=== PATIENT | male | born 1955 | race Caucasian/White ===

== ENCOUNTER 2017-10-15 05:23 | Inpatient (IN) | payer MEDICARE, MEDICAID ==
[2017-10-05 12:54] VITALS: BP 146/82
[~2017-10-15] VITALS: Ht 180.3 cm; Wt 105.0 kg
[~2017-10-15 05:23] MED LIST: AMLO5TAB2 PO; ASPI-496 PO; ATEN100T PO; ATOR80TA PO; CILO50TA PO; CLOP75TA PO; GABA300C10 PO; HYDR-3307 PO; HYDR12.58 PO; ISOS120T2 PO; LISI40TA PO; METF500T4 PO; NITR0.4T28 SL; TERA2CAP3 PO; VARE1TAB21 PO
[2017-10-15] MEDS ORDERED: VANCOMYCIN PER PHARMACY MC ONE (05:54)
[2017-10-15] MEDS ORDERED: LACTATED RINGERS 1,000 ML IV SCH (05:57)
[2017-10-15] MEDS ORDERED: GABAPENTIN 300 MG CAPSULE PO ONE (06:00)
[2017-10-15] MEDS ORDERED: VANCOMYCIN 1,800 MG in SODIUM CHLORIDE 0.9% 250 ML IV ONE (06:00)
[2017-10-15] MEDS ORDERED: LIDOCAINE-MPF 1%, 2ML INFIL ONE (06:00)
[2017-10-15] MEDS ORDERED: ACETAMINOPHEN 500 MG TABLET PO ONE (06:00)
[2017-10-15] MEDS ORDERED: KETOROLAC 60 MG/2 ML ONE (06:16)
[2017-10-15] MEDS ORDERED: ROPIvacaine/PF 0.2%, 20 ML ONE (06:17)
[2017-10-15] MEDS ORDERED: TRANEXAMIC ACID 100 MG/ML, 10ML ONE ×4 (06:17)
[2017-10-15] MEDS ORDERED: VANCOMYCIN 1,000 MG ONE (06:18)
[2017-10-15] MEDS ORDERED: EPINEPHRINE 1 MG/ML, 1ML ONE (06:18)
[2017-10-15] MEDS ORDERED: SODIUM CHLORIDE 0.9% 100 ML ONE (06:18)
[2017-10-15] MEDS ORDERED: ROPivacaine/PF 0.2%, 10 ML ONE (06:18)
[2017-10-15] MEDS ORDERED: MIDAZOLAM 1 MG/ML, 2ML ONE (06:30)
[2017-10-15] MEDS ORDERED: PNEUMOCOCCAL 23 VACCINE IM-VACC ONE (06:30)
[2017-10-15] MEDS ORDERED: FENTANYL PF 250 MCG/5ML ONE (06:30)
[2017-10-15] MEDS ORDERED: GLYCOPYRROLATE 0.2MG/1ML, 5ML ONE (07:20)
[2017-10-15] MEDS ORDERED: CEFAZOLIN 1,000 MG ONE (07:20)
[2017-10-15] MEDS ORDERED: ROCURONIUM 10MG/ML,5ML ONE (07:20)
[2017-10-15] MEDS ORDERED: PROPOFOL 10 MG/ML, 20ML ONE (07:20)
[2017-10-15] MEDS ORDERED: SUCCINYLCHOLINE 20 MG/ML, 10ML ONE (07:20)
[2017-10-15] MEDS ORDERED: ONDANSETRON 2MG/ML, 2ML ONE (07:20)
[2017-10-15] MEDS ORDERED: NEOSTIGMINE 1 MG/ML, 10ML ONE (07:20)
[2017-10-15] MEDS ORDERED: OXYcodone 5 MG/5 ML ORAL.SOL UDC PO PRN (08:00)
[2017-10-15] MEDS ORDERED: METOCLOPRAMIDE 5 MG/ML, 2ML IV PRN (08:00)
[2017-10-15] MEDS ORDERED: ONDANSETRON 2MG/ML, 2ML IVPush PRN (08:00)
[2017-10-15] MEDS ORDERED: LABETALOL 5MG/ML, 20ML IV PRN (08:00)
[2017-10-15] MEDS ORDERED: ACETAMINOPHEN 325 MG TABLET PO PRN (08:00)
[2017-10-15] MEDS ORDERED: hydrALAzine 20 MG/ML, 1ML IV PRN (08:00)
[2017-10-15] MEDS ORDERED: MEPERIDINE/PF 50 MG/ML ONE (09:03)
[2017-10-15] MEDS ORDERED: HYDROmorphone 1 MG/ML, 1ML ONE (09:04)
[2017-10-15] MEDS ORDERED: FENTANYL PF 100 MCG/2ML ONE (09:04)
[2017-10-15] MEDS: MEPERIDINE/PF 25MG/0.5ML IVPush PRN ×2 (09:10→09:25)
[2017-10-15] MEDS: FENTANYL PF 100 MCG/2ML IV PRN ×2 (09:15→09:30)
[2017-10-15] MEDS: HYDROmorphone 1 MG/ML, 1ML IV PRN ×3 (09:20→09:50)
[2017-10-15] MEDS ORDERED: OXYcodone 5 MG/5 ML ORAL.SOL UDC ONE (09:22)
[2017-10-15] MEDS ORDERED: SENNA/DOCUSATE TABLET PO PRN (11:00)
[2017-10-15] MEDS ORDERED: ALUMINUM/MAG/SIMETHICONE 30 ML UDC PO PRN (11:00)
[2017-10-15] MEDS ORDERED: TRANEXAMIC ACID 1,000 MG in SODIUM CHLORIDE 0.9% 100 ML IVPB ONE (11:00)
[2017-10-15] MEDS ORDERED: ONDANSETRON 4 MG TABLET PO PRN (11:00)
[2017-10-15] MEDS ORDERED: MAGNESIUM HYDROXIDE 8%, 30ML UDC PO PRN (11:00)
[2017-10-15] MEDS ORDERED: ACETAMINOPHEN 650 MG/20.3 ML UDC PO PRN (11:00)
[2017-10-15] MEDS ORDERED: DIPHENHYDRAMINE 25 MG CAPSULE PO PRN (11:00)
[2017-10-15] MEDS ORDERED: DIAZEPAM 5 MG TABLET PO PRN (11:00)
[2017-10-15] MEDS ORDERED: ONDANSETRON 2MG/ML, 2ML IV PRN (11:00)
[2017-10-15] MEDS ORDERED: MORPHINE SULFATE 4 MG/ML, 1ML IV PRN (11:00)
[2017-10-15] MEDS ORDERED: NITROGLYCERIN 0.4 MG BOTTLE (25 TABS) SL PRN (11:30)
[2017-10-15] MEDS: AMLODIPINE 5 MG TABLET PO SCH (11:40)
[2017-10-15] MEDS: NS + 20MEQ KCL 1,000 ML IV SCH ×2 (13:19→22:00)
[2017-10-15] MEDS: OXYcodone IR 5MG TABLET PO PRN (13:51)
[2017-10-15 14:35] VITALS: BP 110/63
[2017-10-15] MEDS: CEFAZOLIN PMX 1GM/50ML 50 ML IVPB SCH (15:25)
[2017-10-15] MEDS: GABAPENTIN 300 MG CAPSULE PO SCH ×2 (15:25→21:56)
[2017-10-15] MEDS ORDERED: TAMSULOSIN 0.4 MG CAP.ER.24H ONE (16:37)
[2017-10-15] MEDS: metFORMIN 500 MG TABLET PO SCH (17:26)
[2017-10-15] MEDS: CLOPIDOGREL 75 MG TABLET PO SCH (17:26)
[2017-10-15] MEDS ORDERED: ASPIRIN 81 MG TABLET EC PO SCH (18:00)
[2017-10-15] MEDS ORDERED: FAMOTIDINE 20 MG TABLET PO PRN (18:30)
[2017-10-15 19:05] VITALS: BP 123/76
[2017-10-15] MEDS ORDERED: ATORVASTATIN 80 MG TABLET PO SCH (21:00)
[2017-10-15] MEDS ORDERED: TERAZOSIN 2MG CAPSULE PO SCH (21:00)
[2017-10-15] MEDS ORDERED: ATENOLOL 100 MG TABLET PO SCH (21:00)
[2017-10-15] MEDS: CILOSTAZOL 100 MG TABLET PO SCH (21:58)
[2017-10-15] MEDS: DOCUSATE 100 MG CAPSULE PO SCH (21:59)
[2017-10-16] MEDS: OXYcodone IR 5MG TABLET PO PRN (01:00)
[2017-10-16] MEDS: CEFAZOLIN PMX 1GM/50ML 50 ML IVPB SCH (01:02)
[2017-10-16 01:58] VITALS: BP 108/68
[2017-10-16] MEDS ORDERED: ASPIRIN 81 MG TABLET EC PO SCH (06:00)
[2017-10-16] MEDS ORDERED: DEXAMETHASONE 4 MG/ML, 1ML IVPush SCH (06:00)
[2017-10-16] MEDS: NS + 20MEQ KCL 1,000 ML IV SCH (07:27)
[2017-10-16] MEDS: DOCUSATE 100 MG CAPSULE PO SCH (07:49)
[2017-10-16] MEDS: GABAPENTIN 300 MG CAPSULE PO SCH (07:49)
[2017-10-16] MEDS: AMLODIPINE 5 MG TABLET PO SCH (07:53)
[2017-10-16] MEDS: CLOPIDOGREL 75 MG TABLET PO SCH (07:53)
[2017-10-16] MEDS: metFORMIN 500 MG TABLET PO SCH (07:59)
[2017-10-16 08:01] VITALS: BP 100/61
[2017-10-16] MEDS ORDERED: HYDROCHLOROTHIAZIDE 12.5 MG CAPSULE PO SCH (09:00)
[2017-10-16] MEDS ORDERED: LISINOPRIL 20 MG TABLET PO SCH (09:00)
[2017-10-16] MEDS ORDERED: ISOSORBIDE MONONITRATE ER 60 MG TABLET PO SCH (09:00)
[2017-10-16] MEDS ORDERED: CLOPIDOGREL 75 MG TABLET PO SCH (09:00)
[2017-10-16] MEDS ORDERED: TAMSULOSIN 0.4 MG CAP.ER.24H PO SCH (09:00)
[2017-10-16] MEDS: CILOSTAZOL 100 MG TABLET PO SCH (09:30)
[2017-10-16] MEDS ORDERED: TRAM50TA2 PO (10:01)
[2017-10-16] MEDS ORDERED: DIAZ5TAB PO (10:01)
[2017-10-16] MEDS ORDERED: OXYC5CAP2 PO (10:01)
[2017-10-16] MEDS ORDERED: DOCU-131 PO (10:01)
[2017-10-16] MEDS ORDERED: ONDA4TAB10 PO (10:01)
[2017-10-16] MEDS ORDERED: CELE200C PO (10:01)
[2017-10-16 10:23] VITALS: BP 101/63
[2017-10-16] MEDS ORDERED: KETOROLAC 30 MG/1 ML IV SCH (14:00)
== END 2017-10-16 11:00 | disposition home or self-care (01) | DRG 470 ==
LOC: ORIP 05:23 → 4NOR 10:45 → DCLOUNGE 10-16 10:43
PROVIDERS: ADMIT Orthopaedic Surgery; ATTEND Orthopaedic Surgery
PROC: 0SR906Z Replacement of Right Hip Joint with Oxidized Zirconium on Polyethylene Synthetic Substitute, Open Approach (ICD-10-PCS; principal; 2017-10-15 07:00)
DX: M16.11 Unilateral primary osteoarthritis, right hip (principal); E11.8 Type 2 diabetes mellitus with unspecified complications; I25.810 Atherosclerosis of coronary artery bypass graft(s) without angina pectoris; I10 Essential (primary) hypertension; F17.200 Nicotine dependence, unspecified, uncomplicated
CPT/HCPCS: 36415; 72170; 82962; 85014; 85018; 86850; 86900; C1713; J0171; J0690; J1100; J1170; J1885; J2175; J2250; J2405; J2704; J2710; J2795; J3010; J3370; J3480; J3490; C1776; J0330; J7050; J7120

== ENCOUNTER 2017-11-03 10:44 | Emergency (ER) | payer MEDICARE, MEDICAID ==
[~2017-11-03] VITALS: Ht 180.3 cm; Wt 103.8 kg
[~2017-11-03 10:44] MED LIST changes: +CELE200C PO; +DIAZ5TAB PO; +DOCU-131 PO; +ONDA4TAB10 PO; +OXYC5CAP2 PO; +TRAM50TA2 PO
[2017-11-03] MEDS ORDERED: ONDANSETRON ODT 4 MG ONE (12:30)
[2017-11-03] MEDS ORDERED: HYDROmorphone 1 MG/ML, 1ML IM ONE (12:30)
[2017-11-03] MEDS ORDERED: ONDANSETRON ODT 4 MG PO ONE (12:30)
[2017-11-03] MEDS ORDERED: KETOROLAC 30 MG/1 ML IM ONE (12:30)
[2017-11-03] MEDS ORDERED: HYDROmorphone 1 MG/ML, 1ML ONE (12:32)
[2017-11-03 13:28] VITALS: BP 114/70
== END 2017-11-03 13:31 | disposition home or self-care (01) ==
LOC: ED 12:00
DX: M16.12 Unilateral primary osteoarthritis, left hip (principal); G89.29 Other chronic pain; E11.9 Type 2 diabetes mellitus without complications; M19.90 Unspecified osteoarthritis, unspecified site; Z87.891 Personal history of nicotine dependence
CPT/HCPCS: 73502; 96372; 99284; J1170; J1885; Q0162

== ENCOUNTER 2017-11-26 05:28 | Inpatient (IN) | payer MEDICARE, MEDICAID ==
[2017-11-19 11:24] VITALS: BP 148/85
[~2017-11-26] VITALS: Ht 179.1 cm; Wt 105.1 kg
[2017-11-26] MEDS ORDERED: VANCOMYCIN PER PHARMACY MC ONE (06:00)
[2017-11-26] MEDS ORDERED: ACETAMINOPHEN 500 MG TABLET PO ONE (06:00)
[2017-11-26] MEDS ORDERED: GABAPENTIN 300 MG CAPSULE PO ONE (06:00)
[2017-11-26] MEDS ORDERED: VANCOMYCIN 1,900 MG in SODIUM CHLORIDE 0.9% 250 ML IV ONE (06:00)
[2017-11-26] MEDS ORDERED: LACTATED RINGERS 1,000 ML IV SCH (06:04)
[2017-11-26] MEDS ORDERED: LIDOCAINE-MPF 1%, 2ML INFIL ONE (06:30)
[2017-11-26] MEDS ORDERED: FENTANYL PF 250 MCG/5ML ONE (06:39)
[2017-11-26] MEDS ORDERED: MIDAZOLAM 1 MG/ML, 2ML ONE (06:39)
[2017-11-26] MEDS ORDERED: PROPOFOL 10 MG/ML, 20ML ONE (06:40)
[2017-11-26] MEDS ORDERED: ROCURONIUM 10MG/ML,5ML ONE (06:41)
[2017-11-26] MEDS ORDERED: NEOSTIGMINE 1 MG/ML, 10ML ONE (06:42)
[2017-11-26] MEDS ORDERED: GLYCOPYRROLATE 0.4 MG/2 ML, 2ML ONE (06:42)
[2017-11-26] MEDS ORDERED: PHENYLEPHRINE 10 MG/ML ONE (06:43)
[2017-11-26] MEDS ORDERED: WATER-INJECTION,STERILE 10 ML IV ONE (06:45)
[2017-11-26] MEDS ORDERED: CEFAZOLIN 1,000 MG ONE ×2 (06:45)
[2017-11-26] MEDS ORDERED: PROMETHAZINE 12.5 MG SUPP PR PRN (07:00)
[2017-11-26] MEDS ORDERED: PROMETHAZINE 25 MG/ML, 1ML IV PRN (07:00)
[2017-11-26] MEDS ORDERED: morphine SULFATE 10 MG/ML, 1ML IV PRN (07:00)
[2017-11-26] MEDS ORDERED: ONDANSETRON 2MG/ML, 2ML IVPush PRN (07:00)
[2017-11-26] MEDS ORDERED: MEPERIDINE/PF 25MG/0.5ML IVPush PRN (07:00)
[2017-11-26] MEDS ORDERED: HYDROmorphone 1 MG/ML, 1ML IV PRN ×2 (07:00→07:30)
[2017-11-26] MEDS ORDERED: FENTANYL PF 100 MCG/2ML IV PRN (07:00)
[2017-11-26] MEDS ORDERED: LABETALOL 5MG/ML, 20ML IV PRN (07:00)
[2017-11-26] MEDS ORDERED: OXYcodone 5 MG/5 ML ORAL.SOL UDC PO PRN (07:00)
[2017-11-26] MEDS ORDERED: hydrALAzine 20 MG/ML, 1ML IV PRN (07:00)
[2017-11-26] MEDS ORDERED: ALUMINUM/MAG/SIMETHICONE 30 ML UDC PO PRN (07:30)
[2017-11-26] MEDS ORDERED: CEFAZOLIN PMX 1GM/50ML 50 ML IVPB SCH (07:30)
[2017-11-26] MEDS ORDERED: MAGNESIUM HYDROXIDE 8%, 30ML UDC PO PRN (07:30)
[2017-11-26] MEDS ORDERED: DIPHENHYDRAMINE 50 MG CAPSULE PO PRN (07:30)
[2017-11-26] MEDS ORDERED: ACETAMINOPHEN 650 MG/20.3 ML UDC PO PRN (07:30)
[2017-11-26] MEDS ORDERED: DIAZEPAM 5 MG TABLET PO PRN (07:30)
[2017-11-26] MEDS ORDERED: ONDANSETRON 2MG/ML, 2ML IV PRN (07:30)
[2017-11-26] MEDS ORDERED: OXYcodone IR 5MG TABLET PO PRN (07:30)
[2017-11-26] MEDS ORDERED: SENNA/DOCUSATE TABLET PO PRN (07:30)
[2017-11-26] MEDS ORDERED: ONDANSETRON 4 MG TABLET PO PRN (07:30)
[2017-11-26] MEDS ORDERED: SUGAMMADEX 200 MG/2 ML IVPush ONE (08:00)
[2017-11-26] MEDS ORDERED: ALBUTEROL SULFATE 2.5 MG/3 ML ONE (08:17)
[2017-11-26] MEDS ORDERED: ALBUTEROL SULFATE 2.5 MG/3 ML NPPB PRN (08:30)
[2017-11-26] MEDS: TAMSULOSIN 0.4 MG CAP.ER.24H PO SCH (09:00)
[2017-11-26] MEDS ORDERED: TRANEXAMIC ACID 1,000 MG in SODIUM CHLORIDE 0.9% 100 ML IVPB ONE (09:00)
[2017-11-26] MEDS: DOCUSATE 100 MG CAPSULE PO SCH ×2 (09:00→21:00)
[2017-11-26 10:27] LABS: CLOSTRIDIUM DIFFICILE ANTIGEN NEGATIVE; CLOSTRIDIUM DIFFICILE TOXIN NEGATIVE (Negative)
[2017-11-26] MEDS ORDERED: ACETAMINOPHEN 325 MG TABLET PO PRN (11:30)
[2017-11-26] MEDS ORDERED: ENALAPRILAT 1.25 MG/ML, 2ML IVPush PRN (11:30)
[2017-11-26] MEDS ORDERED: DOCUSATE 100 MG CAPSULE PO PRN (11:30)
[2017-11-26] MEDS ORDERED: POLYETHYLENE GLYCOL 17 GM PACKET PO PRN (11:30)
[2017-11-26] MEDS ORDERED: BISACODYL 10 MG SUPP PR PRN (11:30)
[2017-11-26] MEDS ORDERED: LABETALOL 5MG/ML, 20ML IVPush PRN (11:30)
[2017-11-26 12:35] LABS: HEMOGLOBIN A1C 6.5 % (4.2-6.3)
[2017-11-26] MEDS: INSULIN LISPRO 100 UNITS/ML, PEN SQ-INSULIN SCH ×2 (13:30→21:36)
[2017-11-26] MEDS: NS + 20MEQ KCL 1,000 ML IV SCH ×2 (13:35→22:15)
[2017-11-26 13:37] VITALS: BP 103/64
[2017-11-26 18:48] LABS: BASOPHILS % (AUTO) 0 % (0-1); EOSINOPHILS % (AUTO) 0 % (1-7); LYMPHOCYTES # (AUTO) 0.65 x10^3/uL (1-3.4); LYMPHOCYTES % (AUTO) 16 % (22-44); MD NO; MEAN CORPUSCULAR HGB CONC 32.5 g/dL (33.2-36.2); MEAN CORPUSCULAR VOLUME 86.3 fL (81-97); MEAN PLATELET VOLUME 8.1 fL (7.4-10.4); MONOCYTES # (AUTO) 0.46 x10^3/uL (0.2-0.8); MONOCYTES % (AUTO) 12 % (2-9); NEUTROPHILS % (AUTO) 72 % (42-75); PLATELET COUNT 200 x10^3/uL (130-400); RED BLOOD COUNT 4.92 x10^6/uL (4.38-5.82); RED CELL DISTRIBUTION WIDTH 15.9 % (9.4-14.8)
[2017-11-26 19:00] LABS: ALANINE AMINOTRANSFERASE 19 U/L (12-78); ALBUMIN 3.2 g/dL (3.4-5.0); ANION GAP 10 mmol/L (5-15); CALCIUM 8.8 mg/dL (8.5-10.1); CHLORIDE 106 mmol/L (98-107); CREATININE 1.15 mg/dL (0.7-1.3)
[2017-11-26 19:02] LABS: ALKALINE PHOSPHATASE 63 U/L (45-117); BILIRUBIN,TOTAL 0.9 mg/dL (0.2-1.0); TOTAL PROTEIN 6.2 g/dL (6.4-8.2)
[2017-11-26] MEDS: metFORMIN 500 MG TABLET PO SCH (19:58)
[2017-11-26] MEDS ORDERED: NITROGLYCERIN 0.4 MG BOTTLE (25 TABS) SL PRN (20:00)
[2017-11-26 20:30] VITALS: BP 96/59
[2017-11-26] MEDS ORDERED: ALMOTRIPTAN 12.5 MG HOMEMEDPO PRN (20:30)
[2017-11-26] MEDS: TERAZOSIN 2MG CAPSULE PO SCH (21:00)
[2017-11-26] MEDS: ATENOLOL 100 MG TABLET PO SCH (21:00)
[2017-11-26] MEDS: ATORVASTATIN 80 MG TABLET PO SCH (21:35)
[2017-11-26] MEDS: CILOSTAZOL 100 MG TABLET PO SCH (21:35)
[2017-11-26] MEDS: CLOPIDOGREL 75 MG TABLET PO SCH (21:35)
[2017-11-26] MEDS: ASPIRIN 81 MG TABLET EC PO SCH (21:35)
[2017-11-27 02:25] VITALS: BP 113/68
[2017-11-27 05:25] LABS: CHLORIDE 107 mmol/L (98-107)
[2017-11-27 05:27] LABS: MEAN CORPUSCULAR HEMOGLOBIN 28.1 pg (27.5-34.5); MEAN CORPUSCULAR VOLUME 85.2 fL (81-97); PLATELET COUNT 209 x10^3/uL (130-400); RED BLOOD COUNT 4.64 x10^6/uL (4.38-5.82); RED CELL DISTRIBUTION WIDTH 15.8 % (9.4-14.8)
[2017-11-27 05:34] LABS: ALANINE AMINOTRANSFERASE 16 U/L (12-78); ALKALINE PHOSPHATASE 60 U/L (45-117); ANION GAP 9 mmol/L (5-15); BILIRUBIN,TOTAL 1.2 mg/dL (0.2-1.0); CALCIUM 9.1 mg/dL (8.5-10.1); CHOL/HDL RATIO 2.6; CHOLESTEROL, TOTAL 90 mg/dL (140-239); CREATININE 0.97 mg/dL (0.7-1.3); HDL CHOL % 38 % (26-37); HDL CHOLESTEROL (DIRECT) 34 mg/dL (40-60); LDL CHOLESTEROL,CALCULATED 32 mg/dL (54-169); LDL/HDL RATIO 0.9 (0.5-3.0); TOTAL PROTEIN 6.1 g/dL (6.4-8.2); TRIGLYCERIDES 120 mg/dL (50-200); VLDL CHOLESTEROL 24 mg/dL (0-25)
[2017-11-27] MEDS: NS + 20MEQ KCL 1,000 ML IV SCH ×2 (05:51→14:00)
[2017-11-27] MEDS: ASPIRIN 81 MG TABLET EC PO SCH (05:54)
[2017-11-27] MEDS ORDERED: DEXAMETHASONE 4 MG/ML, 1ML IVPush SCH (06:00)
[2017-11-27 06:15] LABS: MD YES
[2017-11-27 06:18] LABS: <PLATELET ESTIMATE> ADEQUATE; <PLT MORPHOLOGY> NORMAL PLT MORPH; <RBC MORPHOLOGY> NORMAL; BANDS%(MANUAL) 12 % (0-7); EOS#(MANUAL) 0.17 x10^3/uL (0.0-0.4); EOS% (MANUAL) 2 % (1-7); LYMPH#(MANUAL) 3.32 x10^3/uL (1-3.4); LYMPHS% (MANUAL) 40 % (22-44); MONOS#(MANUAL) 0.42 x10^3/uL (0.3-2.7); MONOS% (MANUAL) 5 % (2-9); SEGS% (MANUAL) 41 % (42-75)
[2017-11-27] MEDS ORDERED: MAGNESIUM SULFATE PMX 4GM/100M 100 ML IV ONE (07:00)
[2017-11-27] MEDS: INSULIN LISPRO 100 UNITS/ML, PEN SQ-INSULIN SCH ×4 (07:00→20:15)
[2017-11-27 07:30] VITALS: BP 115/72
[2017-11-27] MEDS: DOCUSATE 100 MG CAPSULE PO SCH (07:49)
[2017-11-27] MEDS: metFORMIN 500 MG TABLET PO SCH ×2 (08:00→16:42)
[2017-11-27] MEDS: ISOSORBIDE MONONITRATE ER 60 MG TABLET PO SCH (09:00)
[2017-11-27] MEDS: AMLODIPINE 5 MG TABLET PO SCH (09:00)
[2017-11-27] MEDS: LISINOPRIL 20 MG TABLET PO SCH (09:00)
[2017-11-27] MEDS: HYDROCHLOROTHIAZIDE 12.5 MG CAPSULE PO SCH (09:00)
[2017-11-27] MEDS: CILOSTAZOL 100 MG TABLET PO SCH ×2 (10:11→20:11)
[2017-11-27] MEDS: TAMSULOSIN 0.4 MG CAP.ER.24H PO SCH (10:12)
[2017-11-27] MEDS: KETOROLAC 30 MG/1 ML IV SCH ×2 (10:23→17:06)
[2017-11-27 13:36] VITALS: BP 118/77
[2017-11-27] MEDS ORDERED: ENOXAPARIN 40 MG/0.4 ML SQ SCH (18:00)
[2017-11-27 19:46] VITALS: BP 131/74
[2017-11-27] MEDS: AMPICILLIN/SULBACTAM 3 GM in SODIUM CHLORIDE 0.9% 100 ML IV SCH (19:56)
[2017-11-27] MEDS: CLOPIDOGREL 75 MG TABLET PO SCH (20:11)
[2017-11-27] MEDS: ATORVASTATIN 80 MG TABLET PO SCH (20:11)
[2017-11-27] MEDS: TERAZOSIN 2MG CAPSULE PO SCH (20:11)
[2017-11-27] MEDS: ATENOLOL 100 MG TABLET PO SCH (20:12)
[2017-11-28] MEDS: AMPICILLIN/SULBACTAM 3 GM in SODIUM CHLORIDE 0.9% 100 ML IV SCH ×2 (01:38→07:34)
[2017-11-28 02:02] VITALS: BP 126/74
[2017-11-28] MEDS: ASPIRIN 81 MG TABLET EC PO SCH (04:40)
[2017-11-28] MEDS: INSULIN LISPRO 100 UNITS/ML, PEN SQ-INSULIN SCH ×2 (07:00→10:38)
[2017-11-28] MEDS: metFORMIN 500 MG TABLET PO SCH (07:20)
[2017-11-28 08:02] VITALS: BP 132/69
[2017-11-28 08:34] LABS: MEAN CORPUSCULAR HEMOGLOBIN 27.4 pg (27.5-34.5); MEAN CORPUSCULAR VOLUME 85.7 fL (81-97); MEAN PLATELET VOLUME 7.7 fL (7.4-10.4); PLATELET COUNT 173 x10^3/uL (130-400); RED BLOOD COUNT 4.17 x10^6/uL (4.38-5.82); RED CELL DISTRIBUTION WIDTH 15.3 % (9.4-14.8)
[2017-11-28 08:35] LABS: BASOPHILS # (AUTO) 0.03 x10^3/uL (0-0.1); BASOPHILS % (AUTO) 0 % (0-1); EOSINOPHILS # (AUTO) 0.29 x10^3/uL (0-0.4); EOSINOPHILS % (AUTO) 3 % (1-7); LYMPHOCYTES # (AUTO) 1.21 x10^3/uL (1-3.4); LYMPHOCYTES % (AUTO) 13 % (22-44); MD NO; MONOCYTES # (AUTO) 0.52 x10^3/uL (0.2-0.8); MONOCYTES % (AUTO) 6 % (2-9); NEUTROPHILS # (AUTO) 7.05 x10^3/uL (1.8-6.8); NEUTROPHILS % (AUTO) 77 % (42-75)
[2017-11-28] MEDS: TAMSULOSIN 0.4 MG CAP.ER.24H PO SCH ×2 (09:00→10:34)
[2017-11-28] MEDS: AMLODIPINE 5 MG TABLET PO SCH ×2 (09:00→10:37)
[2017-11-28] MEDS: ISOSORBIDE MONONITRATE ER 60 MG TABLET PO SCH (09:00)
[2017-11-28] MEDS: CLOPIDOGREL 75 MG TABLET PO SCH ×2 (09:00→10:36)
[2017-11-28] MEDS: LISINOPRIL 20 MG TABLET PO SCH (09:00)
[2017-11-28] MEDS: CILOSTAZOL 100 MG TABLET PO SCH (09:00)
[2017-11-28] MEDS: HYDROCHLOROTHIAZIDE 12.5 MG CAPSULE PO SCH (09:00)
[2017-11-28] MEDS ORDERED: AMOXICILLIN/CLAV 875-125MG TABLET PO SCH (12:00)
[2017-11-28 14:43] VITALS: BP 147/83
== END 2017-11-28 15:00 | disposition home or self-care (01) | DRG 553 ==
LOC: ORIP 05:28 → 4NOR 08:50
PROVIDERS: ADMIT Orthopaedic Surgery; ATTEND Orthopaedic Surgery
PROC: 0SJBXZZ Inspection of Left Hip Joint, External Approach (ICD-10-PCS; principal; 2017-11-26 07:30)
DX: M16.12 Unilateral primary osteoarthritis, left hip (principal); J69.0 Pneumonitis due to inhalation of food and vomit; I25.10 Atherosclerotic heart disease of native coronary artery without angina pectoris; E11.9 Type 2 diabetes mellitus without complications; I10 Essential (primary) hypertension; E78.5 Hyperlipidemia, unspecified
CPT/HCPCS: 36415; 71045; 71046; 78264; 80053; 80061; 82962; 83036; 83735; 84100; 85025; 86850; 86900; 87324; 94640; J0295; J0690; J1650; J1885; J2250; J2704; J2710; J3010; J3370; J3480; J3490; J7613; Q0162; A9541; C9898; J1815; J2370; J3475; J7050; J7120

== ENCOUNTER → 2020-02-09 | Outpatient (CLI) | payer MEDICARE, MEDICAID ==
[~2020-02-09] MED LIST changes: +AMLO-150 PO; -AMLO5TAB2 PO; +HYDR-3246 PO; -HYDR-3307 PO; -HYDR12.58 PO; +HYDROCHLOROTH12.5 MG PO; -ISOS120T2 PO; +ISOS120T4 PO; +METF500T17 PO; -METF500T4 PO
== END | disposition home or self-care (01) ==
LOC: STAR 09:11
PROVIDERS: ATTEND Orthopaedic Surgery
DX: Z01.818 Encounter for other preprocedural examination (principal); M25.511 Pain in right shoulder; M75.41 Impingement syndrome of right shoulder; R00.1 Bradycardia, unspecified; Z96.611 Presence of right artificial shoulder joint
CPT/HCPCS: 36415; 80053; 87635; 93005

== ENCOUNTER 2020-02-12 11:17 | Day surgery (SDC) | payer MEDICARE, MEDICAID ==
[2020-02-09 10:21] LABS: ALBUMIN 3.9 g/dL (3.4-5.0); CALCIUM 8.7 mg/dL (8.5-10.1)
[2020-02-09 10:25] LABS: ALANINE AMINOTRANSFERASE 20 U/L (12-78); ALKALINE PHOSPHATASE 59 U/L (45-117); BILIRUBIN,TOTAL 0.4 mg/dL (0.2-1.0); CREATININE 0.84 mg/dL (0.7-1.3)
[2020-02-09 10:41] LABS: ANION GAP 7 mmol/L (5-15); CHLORIDE 110 mmol/L (98-107)
[~2020-02-12] VITALS: Ht 177.8 cm; Wt 92.8 kg
[2020-02-12] MEDS ORDERED: MIDAZOLAM 1 MG/ML, 2ML ONE (11:32)
[2020-02-12] MEDS ORDERED: FENTANYL PF 100 MCG/2ML ONE (11:32)
[2020-02-12] MEDS ORDERED: LACTATED RINGERS 1,000 ML IV SCH (11:53)
[2020-02-12 11:55] VITALS: BP 128/76
[2020-02-12] MEDS ORDERED: LIDOCAINE-MPF 1%, 2ML INFIL ONE (12:00)
[2020-02-12] MEDS ORDERED: CHLORHEXIDINE 15 ML UDC MM ONE (12:00)
[2020-02-12] MEDS ORDERED: CHLORHEXIDINE 15 ML UDC ONE (12:04)
[2020-02-12] MEDS ORDERED: BUPIVACAINE/PF-EPI 0.5% 1:200K ONE (12:08)
[2020-02-12] MEDS ORDERED: LIDOCAINE/PF 1%-EPI 1:200K, 30 ML ONE (12:08)
[2020-02-12] MEDS ORDERED: NITROGLYCERIN 0.4 MG BOTTLE (25 TABS) SL PRN (12:30)
[2020-02-12] MEDS ORDERED: EPHEDRINE 50 MG/ML, 1ML ONE (13:23)
[2020-02-12] MEDS ORDERED: ROCURONIUM 10 MG/ML,10ML ONE (13:23)
[2020-02-12] MEDS ORDERED: SUCCINYLCHOLINE 20 MG/ML, 10ML ONE (13:23)
[2020-02-12] MEDS ORDERED: DEXAMETHASONE 4 MG/ML, 1ML ONE (13:56)
[2020-02-12] MEDS ORDERED: CEFAZOLIN 1,000 MG ONE (13:56)
[2020-02-12] MEDS ORDERED: PROPOFOL 10 MG/ML, 20ML ONE (13:56)
[2020-02-12] MEDS ORDERED: ONDANSETRON 2MG/ML, 2ML ONE (13:56)
[2020-02-12] MEDS ORDERED: LIDOCAINE-MPF 2% ,5ML ONE (13:56)
[2020-02-12] MEDS ORDERED: hydrALAzine 20 MG/ML, 1ML IV PRN (14:00)
[2020-02-12] MEDS ORDERED: HYDROmorphone 1 MG/ML, 1ML INJ IVPush PRN (14:00)
[2020-02-12] MEDS ORDERED: PROMETHAZINE 25 MG/ML, 1ML IVPush PRN (14:00)
[2020-02-12] MEDS ORDERED: MIDAZOLAM 1 MG/ML, 2ML IV PRN (14:00)
[2020-02-12] MEDS ORDERED: FENTANYL PF 100 MCG/2ML IV PRN (14:00)
[2020-02-12] MEDS ORDERED: OXYcodone 5 MG/5 ML ORAL.SOL UDC PO PRN (14:00)
[2020-02-12] MEDS ORDERED: ACETAMINOPHEN 325 MG TABLET PO PRN (14:00)
[2020-02-12] MEDS ORDERED: LABETALOL 5MG/ML, 20ML IV PRN (14:00)
[2020-02-12] MEDS ORDERED: MEPERIDINE/PF 25MG/0.5ML IVPush PRN (14:00)
[2020-02-12] MEDS ORDERED: ALBUTEROL SULFATE 2.5 MG/3 ML NPPB PRN (14:00)
[2020-02-12] MEDS ORDERED: ATORVASTATIN 80 MG TABLET PO SCH (21:00)
[2020-02-12] MEDS ORDERED: TERAZOSIN 2MG CAPSULE PO SCH (21:00)
[2020-02-12] MEDS ORDERED: ATENOLOL 100 MG TABLET PO SCH (21:00)
[2020-02-12] MEDS ORDERED: metFORMIN 500 MG TABLET PO SCH (21:00)
[2020-02-13] MEDS ORDERED: ASPIRIN 81 MG TABLET EC PO SCH (09:00)
[2020-02-13] MEDS ORDERED: HYDROCHLOROTHIAZIDE 12.5 MG CAPSULE PO SCH (09:00)
[2020-02-13] MEDS ORDERED: CLOPIDOGREL 75 MG TABLET PO SCH (09:00)
[2020-02-13] MEDS ORDERED: LISINOPRIL 40 MG TABLET PO SCH (09:00)
[2020-02-13] MEDS ORDERED: ISOSORBIDE MONONITRATE 120 MG PO SCH (09:00)
[2020-02-13] MEDS ORDERED: metFORMIN 500 MG TABLET PO SCH (09:00)
[2020-02-13] MEDS ORDERED: AMLODIPINE 5 MG TABLET PO SCH (09:00)
== END 2020-02-12 16:40 | disposition home or self-care (01) ==
LOC: OUT 11:17
PROVIDERS: ATTEND Orthopaedic Surgery
DX: M75.01 Adhesive capsulitis of right shoulder (principal); M19.011 Primary osteoarthritis, right shoulder; M25.811 Other specified joint disorders, right shoulder; M65.811 Other synovitis and tenosynovitis, right shoulder; M19.90 Unspecified osteoarthritis, unspecified site; I25.10 Atherosclerotic heart disease of native coronary artery without angina pectoris; E11.9 Type 2 diabetes mellitus without complications; I11.0 Hypertensive heart disease with heart failure; I50.9 Heart failure, unspecified; Z96.611 Presence of right artificial shoulder joint; Z79.82 Long term (current) use of aspirin; Z79.899 Other long term (current) drug therapy; Z86.73 Personal history of transient ischemic attack (TIA), and cerebral infarction without residual deficits; Z82.49 Family history of ischemic heart disease and other diseases of the circulatory system; Z82.3 Family history of stroke; Z72.89 Other problems related to lifestyle
CPT/HCPCS: 29822; 29824; 29826; 64415; 82962; J0330; J0690; J1100; J2250; J2405; J2704; J3010; J3490; 36415; 80053; 87635